=== PATIENT | female | born 1985 | race African-American/Black ===

== ENCOUNTER 2023-09-16 18:04 | Emergency (ER) | payer MEDICAID, OTHER ==
[~2023-09-16] VITALS: Ht 167.6 cm; Wt 59.0 kg
[~2023-09-16 18:04] MED LIST: AMOX-494 MT; CLAR10 MT; IBUP-1523 MT; P50 MT; TOPUD MT
[2023-09-16 18:31] VITALS: BP 125/83; PULSE 89; RESP 18; TEMP 98.4; O2SAT 100
[2023-09-16] MEDS ORDERED: NAPR-681 MT (20:10)
== END 2023-09-16 20:07 | disposition home or self-care (01) ==
LOC: ER 18:04
DX: S67.190A Crushing injury of right index finger, initial encounter (principal); X58.XXXA Exposure to other specified factors, initial encounter; Y93.89 Activity, other specified; Y92.89 Other specified places as the place of occurrence of the external cause; Y99.8 Other external cause status
CPT/HCPCS: 73140; 99283

== ENCOUNTER 2024-11-01 13:39 | Emergency (ER) | payer MEDICAID ==
[~2024-11-01] VITALS: Ht 165.1 cm; Wt 65.0 kg
[~2024-11-01 13:39] MED LIST changes: +NAPR-681 MT
[2024-11-01 13:54] VITALS: TEMP 36.7; O2SAT 98
[2024-11-01 15:29] VITALS: BP 131/74; PULSE 83; RESP 18
[2024-11-01] MEDS: KETOROLAC 30MG/ML VIAL IM ONE (15:29)
[2024-11-01] MEDS: DIPHENHYDRAMINE 25MG CAPSULE PO ONE (15:29)
[2024-11-01] MEDS: METOCLOPRAMIDE HCL 10MG TABLET PO ONE (15:30)
[2024-11-01] MEDS ORDERED: IBUP-2029 MT (16:02)
[2024-11-01] MEDS ORDERED: METO-293 MT (16:02)
== END 2024-11-01 16:16 | disposition home or self-care (01) ==
LOC: ER 13:45
DX: G43.909 Migraine, unspecified, not intractable, without status migrainosus (principal); J45.909 Unspecified asthma, uncomplicated; Z79.899 Other long term (current) drug therapy
CPT/HCPCS: 99283; 96372; J1885; Q0163; J8597

== ENCOUNTER 2024-12-20 08:27 | Emergency (ER) | payer MEDICAID ==
[~2024-12-20] VITALS: Ht 165.1 cm; Wt 64.0 kg
[~2024-12-20 08:27] MED LIST changes: +IBUP-2029 MT; +METO-293 MT
[2024-12-20 08:28] VITALS: BP 126/84; PULSE 74; RESP 14; TEMP 36.8; O2SAT 100
[2024-12-20] MEDS: KETOROLAC 30MG/ML VIAL IM ONE (09:06)
== END 2024-12-20 10:01 | disposition home or self-care (01) ==
LOC: ER 08:27
DX: G43.909 Migraine, unspecified, not intractable, without status migrainosus (principal); J45.909 Unspecified asthma, uncomplicated; Z79.899 Other long term (current) drug therapy
CPT/HCPCS: 99283; 81025; 96372; J1885

== ENCOUNTER 2025-01-17 12:14 | Emergency (ER) | payer MEDICAID ==
[~2025-01-17] VITALS: Ht 165.1 cm; Wt 63.5 kg
[2025-01-17 12:15] VITALS: O2SAT 100
[2025-01-17 12:21] VITALS: TEMP 37.1; O2SAT 100
[2025-01-17 13:11] VITALS: BP 122/75; PULSE 85; RESP 14
[2025-01-17] MEDS: KETOROLAC 30MG/ML VIAL IM ONE (13:11)
== END 2025-01-17 13:33 | disposition home or self-care (01) ==
LOC: ER 12:14
DX: G43.909 Migraine, unspecified, not intractable, without status migrainosus (principal); J45.909 Unspecified asthma, uncomplicated; Z79.899 Other long term (current) drug therapy
CPT/HCPCS: 99283; 96372; J1885

== ENCOUNTER 2025-02-20 18:05 | Emergency (ER) | payer MEDICAID ==
[~2025-02-20] VITALS: Ht 165.1 cm; Wt 63.6 kg
[2025-02-20 18:15] VITALS: O2SAT 98
[2025-02-20] MEDS ORDERED: SUMA11AE2 BOTHNSTRLS (19:35)
[2025-02-20] MEDS: DEXAMETHASONE 4MG TABLET PO ONE (20:11)
[2025-02-20] MEDS: SUMATRIPTAN SUCCINATE 6MG/0.5ML VIAL SUBCUT ONE (20:12)
[2025-02-20] MEDS: KETOROLAC 30MG/ML VIAL IM ONE (20:13)
[2025-02-20 20:19] VITALS: BP 125/84; PULSE 72; RESP 19; TEMP 37; O2SAT 98
== END 2025-02-20 20:21 | disposition home or self-care (01) ==
LOC: ER 18:05
DX: G43.909 Migraine, unspecified, not intractable, without status migrainosus (principal); H92.01 Otalgia, right ear; J45.909 Unspecified asthma, uncomplicated; Z79.899 Other long term (current) drug therapy
CPT/HCPCS: 81025; 96372; 99284; J8540; J1885; J3030; Z7610 ×2

== ENCOUNTER 2025-04-14 14:27 | Emergency (ER) | payer MEDICAID ==
[~2025-04-14] VITALS: Ht 177.8 cm; Wt 83.0 kg
[~2025-04-14 14:27] MED LIST changes: +SUMA11AE2 BOTHNSTRLS
[2025-04-14 14:37] VITALS: O2SAT 100
[2025-04-14] MEDS ORDERED: KETOROLAC 15MG/ML VIAL IV ONE (16:45)
[2025-04-14] MEDS ORDERED: METOCLOPRAMIDE HCL 10MG/2ML VIAL IV ONE (16:45)
[2025-04-14] MEDS ORDERED: SODIUM CHLORIDE 0.9% 1,000 ML IV ONE (16:45)
[2025-04-14] MEDS: ONDANSETRON 4MG ODT PO ONE (18:03)
[2025-04-14] MEDS: KETOROLAC 15MG/ML VIAL IM ONE (18:03)
[2025-04-14] MEDS ORDERED: ONDA4TAB50 MT (18:24)
[2025-04-14 18:41] VITALS: BP 142/77; PULSE 60; RESP 18; TEMP 37.1; O2SAT 100
== END 2025-04-14 18:42 | disposition home or self-care (01) ==
LOC: ER 14:27
DX: G43.909 Migraine, unspecified, not intractable, without status migrainosus (principal); J45.909 Unspecified asthma, uncomplicated; Z79.899 Other long term (current) drug therapy
CPT/HCPCS: 99283; 96372; J1885; Q0162; J7030

== ENCOUNTER 2025-07-30 11:44 | Emergency (ER) | payer MEDICAID ==
[~2025-07-30] VITALS: Ht 165.1 cm; Wt 63.0 kg
[~2025-07-30 11:44] MED LIST changes: +IBUP-1455 MT; -IBUP-2029 MT; +ONDA4TAB50 MT
[2025-07-30 11:58] VITALS: O2SAT 100
[2025-07-30] MEDS: METOCLOPRAMIDE HCL 10MG/2ML VIAL IV ONE (15:29)
[2025-07-30] MEDS: SODIUM CHLORIDE 0.9% 500 ML IV ONE (15:29)
[2025-07-30] MEDS: KETOROLAC 15MG/ML VIAL IV ONE (15:29)
[2025-07-30 16:30] VITALS: BP 119/69; PULSE 64; RESP 17; TEMP 36.6; O2SAT 100
[2025-07-30] MEDS ORDERED: METO5TAB86 MT (16:30)
[2025-07-30] MEDS ORDERED: IBUP-2028 MT (16:30)
== END 2025-07-30 17:03 | disposition home or self-care (01) ==
LOC: ER 11:44
DX: G43.909 Migraine, unspecified, not intractable, without status migrainosus (principal); J45.909 Unspecified asthma, uncomplicated
CPT/HCPCS: 81025; 96374; 96375; 99284; J1885; J2765; J7040; Z7610